=== PATIENT | male | born 1955 | race Two or more races ===

== ENCOUNTER 2018-02-20 19:10 | Emergency (ER) | payer OTHER ==
[~2018-02-20] VITALS: Ht 180.3 cm; Wt 90.7 kg
[2018-02-20] MEDS ORDERED: TAMS0.4C (19:43)
[2018-02-21] MEDS ORDERED: KETO10TA2 PO (05:14)
[2018-02-21] MEDS ORDERED: TAMS0.4C PO (05:14)
== END 2018-02-21 05:32 | disposition home or self-care (01) ==
LOC: ER 19:10
DX: N21.1 Calculus in urethra (principal); N20.0 Calculus of kidney; K59.09 Other constipation